=== PATIENT | female | born 1965 | race Caucasian/White ===

== ENCOUNTER 2022-04-05 06:32 | Emergency (ER) | payer OTHER ==
[~2022-04-05] VITALS: Ht 165.1 cm; Wt 76.7 kg
[~2022-04-05 06:32] MED LIST: INTESTINEX1 CAP PO; LEVSIN/SL0.125 MG PO; ORPH100T PO; PROTONIX40 MG PO; SYNTHROID50 MCG
[2022-04-05] MEDS ORDERED: AVALIDE 300-121 EACH PO (06:52)
[2022-04-05] MEDS ORDERED: CRESTOR10 MG PO (06:52)
== END 2022-04-05 07:44 | disposition home or self-care (01) ==
LOC: ER 06:32
DX: R00.2 Palpitations (principal)

== ENCOUNTER 2022-09-25 04:16 | Emergency (ER) | payer OTHER ==
[~2022-09-25] VITALS: Ht 165.1 cm; Wt 71.7 kg
[~2022-09-25 04:16] MED LIST changes: +AVALIDE 300-121 EACH PO; +CRESTOR10 MG PO
[2022-09-25] MEDS ORDERED: IRBESARTAN-HCT1 EAC1 PO (04:27)
[2022-09-25] MEDS ORDERED: TOPROL XL50 M1 PO (04:27)
[2022-09-25] MEDS ORDERED: PEPCID40 MG PO (06:29)
[2022-09-25] MEDS ORDERED: PROTONIX40 MG PO (06:29)
== END 2022-09-25 06:37 | disposition home or self-care (01) ==
LOC: ER 04:16
DX: K21.9 Gastro-esophageal reflux disease without esophagitis (principal)

== ENCOUNTER 2022-10-13 08:27 | Outpatient (CLI) | payer OTHER ==
[~2022-10-13 08:27] MED LIST changes: +IRBESARTAN-HCT1 EAC1 PO; +PEPCID40 MG PO; +TOPROL XL50 M1 PO
== END 2022-10-13 08:38 | disposition home or self-care (01) ==
LOC: RAD 08:27
PROVIDERS: ATTEND Physical Medicine & Rehabilitation
DX: M54.2 Cervicalgia (principal); M54.59 Other low back pain

== ENCOUNTER 2022-10-28 08:29 | Outpatient (CLI) | payer OTHER | END 2022-10-28 08:30 | disposition home or self-care (01) | LOC: LAB 08:29 | PROVIDERS: ATTEND General Practice | DX: E06.3 Autoimmune thyroiditis (principal); E04.1 Nontoxic single thyroid nodule; E78.2 Mixed hyperlipidemia; E55.9 Vitamin D deficiency, unspecified; E56.8 Deficiency of other vitamins; I11.9 Hypertensive heart disease without heart failure; E66.09 Other obesity due to excess calories; Z68.30 Body mass index [BMI] 30.0-30.9, adult; E83.52 Hypercalcemia; E21.0 Primary hyperparathyroidism; M85.80 Other specified disorders of bone density and structure, unspecified site; Z13.820 Encounter for screening for osteoporosis ==

== ENCOUNTER → 2024-06-24 | Emergency (ER) | payer OTHER ==
[~2024-06-24] VITALS: Ht 165.1 cm; Wt 75.3 kg
== END | disposition home or self-care (01) ==
LOC: ER 01:11
DX: Z53.21 Procedure and treatment not carried out due to patient leaving prior to being seen by health care provider (principal)

== ENCOUNTER 2025-06-01 13:57 | Outpatient (CLI) | payer OTHER | END 2025-06-01 14:14 | disposition home or self-care (01) | LOC: RAD 13:57 | DX: R05.3 Chronic cough (principal); M47.817 Spondylosis without myelopathy or radiculopathy, lumbosacral region; M25.559 Pain in unspecified hip ==

== ENCOUNTER 2025-06-18 08:50 | Outpatient (CLI) | payer OTHER | END 2025-06-18 08:59 | disposition home or self-care (01) | LOC: SONOGRAMA 08:50 | PROVIDERS: ATTEND Internal Medicine Gastroenterology | DX: K30 Functional dyspepsia (principal); K21.00 Gastro-esophageal reflux disease with esophagitis, without bleeding; K82.9 Disease of gallbladder, unspecified; R11.0 Nausea; R10.10 Upper abdominal pain, unspecified ==

== ENCOUNTER 2025-06-19 07:38 | Outpatient (CLI) | payer OTHER | END 2025-06-19 07:50 | disposition home or self-care (01) | LOC: TOM 07:38 | PROVIDERS: ATTEND Internal Medicine Gastroenterology | DX: R74.01 Elevation of levels of liver transaminase levels (principal); R10.10 Upper abdominal pain, unspecified ==

== ENCOUNTER 2025-06-25 07:00 | Day surgery (SDC) | payer OTHER ==
[2025-06-22 09:01] VITALS: BP 120/70
[2025-06-22 09:08] LABS: BASO % 0.7 % (0.1-1.2); EOS # 0.88 (0.04-0.54); EOS % 10.2 % (0.7-7.0); LYMPH # 1.18 (1.18-3.74); LYMPH % 13.6 % (19.3-53.1); MEAN PLATELET VOLUME 9.70 fl (9.4-12.4); MONO # 0.80 (0.24-0.82); MONO % 9.2 % (4.7-12.5); NEUT # 5.72 (1.56-6.13); NEUT % 66.1 % (34.0-71.1); RED CELL DISTRIBUTION WIDTH 13.4 % (11.6-14.4)
[2025-06-22 09:24] LABS: INR 1.18
[2025-06-22 10:04] LABS: ALT/SGPT 119.0 U/L (12-78); AST/SGOT 50.0 U/L (15-37); BILIRUBIN TOTAL 1.33 mg/dL (0.3-1.2); BUN CREA RATIO 20.0 (7.0-25.0); CREATININE SERUM 0.65 mg/dL (0.55-1.02); GFR 92.66; GLOBULINA 3.9 G/DL (2.4-3.5); GLUCOSE FASTING 104.0 mg/dL (65-100); OSMOLALITY SERUM 280.0 MOSM/KG (275-295)
[~2025-06-25] VITALS: Ht 165.1 cm; Wt 61.7 kg
[~2025-06-25 07:00] MED LIST changes: +EZALLOR SPRINKL10 MG PO; +PREVACID30 MG PO
[2025-06-25] MEDS ORDERED: IOVERSOL 320 MG/ML - 50 ML VIAL IV ONE (09:45)
[2025-06-25] MEDS ORDERED: GLUCAGON 1 MG VIAL IV ONE (09:45)
[2025-06-25] MEDS ORDERED: CIPROFLOXACIN IN 5 % DEXTROSE 400 MG/200 ML PIGGYBAG IV ONE (12:15)
== END 2025-06-25 16:15 | disposition home or self-care (01) ==
LOC: CIR.AMB 07:00
PROVIDERS: ATTEND Internal Medicine
DX: C25.8 Malignant neoplasm of overlapping sites of pancreas (principal); C78.7 Secondary malignant neoplasm of liver and intrahepatic bile duct; R93.2 Abnormal findings on diagnostic imaging of liver and biliary tract; R93.5 Abnormal findings on diagnostic imaging of other abdominal regions, including retroperitoneum
CPT/HCPCS: 43238; 43262; 43274; C1748

== ENCOUNTER 2025-07-11 12:06 | Emergency (ER) | payer OTHER ==
[~2025-07-11] VITALS: Ht 165.1 cm; Wt 62.6 kg
[2025-07-11 13:49] LABS: BASO % 0.6 % (0.1-1.2); EOS # 0.63 (0.04-0.54); EOS % 8.8 % (0.7-7.0); LYMPH # 0.90 (1.18-3.74); LYMPH % 12.6 % (19.3-53.1); MEAN PLATELET VOLUME 10.20 fl (9.4-12.4); MONO # 0.77 (0.24-0.82); MONO % 10.8 % (4.7-12.5); NEUT # 4.76 (1.56-6.13); NEUT % 66.9 % (34.0-71.1); RED CELL DISTRIBUTION WIDTH 13.7 % (11.6-14.4)
[2025-07-11 13:53] LABS: ERYTHROCYTE SEDIMENTATION RATE 14 mm/hr (0-30)
[2025-07-11 14:14] LABS: INR 1.19
[2025-07-11 14:21] LABS: ALT/SGPT 87.0 U/L (12-78); AST/SGOT 59.0 U/L (15-37); BILIRUBIN TOTAL 1.29 mg/dL (0.3-1.2); BUN CREA RATIO 24.0 (7.0-25.0); CREATININE SERUM 0.51 mg/dL (0.55-1.02); GFR 122.59; GLOBULINA 3.9 G/DL (2.4-3.5); GLUCOSE FASTING 87.0 mg/dL (65-100); OSMOLALITY SERUM 269.0 MOSM/KG (275-295)
[2025-07-11 14:57] LABS: URINE APPEARANCE Clear; URINE BILIRRUBIN Negative (NEGATIVE); URINE BLOOD NHT; URINE COLOR Dark Yellow; URINE GLUCOSE Negative (NEGATIVE); URINE KETONE Trace (NEGATIVE); URINE LEUKOCYTE Trace; URINE NITRATE Negative; URINE PROTEIN Negative (NEGATIVE); URINE UROBILINOGEN 1.0 E.U./dl
[2025-07-11 14:59] LABS: URINE BACTERIA 35.4 uL (0.0-1933); URINE EPITHELIAL CELLS 9.6 uL (0.0-38.8); URINE RBC 13.7 uL (0.0-20.8); URINE WBC 5.9 uL (0.0-23.2)
[2025-07-11 15:08] LABS: URINE CAST 0.00 uL (0.0-1.40)
[2025-07-11] MEDS ORDERED: MORPHINE SULFATE 4 MG/ML CARTRIDGE IV STA (17:29)
[2025-07-11] MEDS ORDERED: METHYLPREDNISOLONE SOD SUCC 125 MG VIAL IM STA (18:51)
[2025-07-11] MEDS ORDERED: METHYLPREDNISOLONE SOD SUCC 125 MG VIAL ONE (19:07)
[2025-07-11] MEDS ORDERED: 0.9 % SODIUM CHLORIDE 1,000 ML IV STA (19:35)
[2025-07-11] MEDS ORDERED: VALACYCLOVIR1000 MG PO (21:50)
[2025-07-11] MEDS ORDERED: PREDNISONE50 MG PO (21:50)
== END 2025-07-11 22:16 | disposition home or self-care (01) ==
LOC: ER 12:06
PROVIDERS: Physician Assistant Medical
DX: G51.0 Bell's palsy (principal); C25.9 Malignant neoplasm of pancreas, unspecified; C78.7 Secondary malignant neoplasm of liver and intrahepatic bile duct; G51.8 Other disorders of facial nerve; R47.9 Unspecified speech disturbances; Z88.0 Allergy status to penicillin

== ENCOUNTER 2025-07-16 07:30 | Outpatient (CLI) | payer OTHER ==
[~2025-07-16 07:30] MED LIST changes: +PREDNISONE50 MG PO; +VALACYCLOVIR1000 MG PO
== END 2025-07-16 07:31 | disposition home or self-care (01) ==
LOC: NUCLEAR 07:30
PROVIDERS: ATTEND Internal Medicine
DX: C25.0 Malignant neoplasm of head of pancreas (principal); C78.7 Secondary malignant neoplasm of liver and intrahepatic bile duct